=== PATIENT | male | born 1965 | race Caucasian/White ===

== ENCOUNTER 2021-01-06 13:21 | Emergency (ER) | payer OTHER ==
--- OUTSIDE RECORDS SUMMARY | 2021-01-06 13:37 | EXTERNAL MEDICAL SUMMARY RPT | Continuity of Care Document ---
:1965 Demographics Phone Unavailable Preferred Language Unknown Marital Status Unknown Yazidism Affiliation Unknown Race Unknown Ethnic Group Unknown Author Organization [facility] Address [address] [id number] Phone Social History date description facility [phone]
[2021-01-06] MEDS ORDERED: HYDROmorphone 1 MG/ML CARPUJECT IVP STA ×2 (14:51→16:30)
--- NOTE | 2021-01-06 14:54 | ED Physician Documentation ---
History of Present Illness - Stated complaint Stated Complaint: SINUS PRESSURE/HEAD PX - Chief complaint Chief Complaint: General - History obtained from History obtained from: Patient - Additonal information Additional information: This is a relatively healthy 55-year-old smoker who was had a couple of days of sinus drainage, mostly clear. He denies fevers. He took a nap yesterday evening, Friday evening and woke after that with his left eye swollen shut and diplopia and a severe headache. Review of Systems Ten Systems: 10 systems reviewed and negative Constitutional: denies: Fever, Chills Eyes: denies: Loss of vision Nose: reports: Rhinorrhea / runny nose PD PAST MEDICAL HISTORY - Past Medical History Past Medical History: No - Past Surgical History Past Surgical History: Yes - Present Medications Home Medications: Ambulatory Orders Medication Instructions Recorded Confirmed Fluticasone [Flonase] 2 spray .ROUTE PRN PRN 01/06/21 01/06/21 - Allergies Allergies/Adverse Reactions: Allergies Allergy/AdvReac Type Severity Reaction Status Date / Time No Known Drug Allergies Allergy Verified 01/06/21 13:25 - Social History Does the pt smoke?: Yes Smoking Status: Current every day smoker Does the pt drink ETOH?: Yes Does the pt have substance abuse?: No - Family History Family history: reports: Non contributory - Immunizations Immunizations are current?: Yes - POLST Patient has POLST: No PD ED PE NORMAL - Vitals Vital signs reviewed: Yes - General General: Alert and oriented X 3, No acute distress - HEENT HEENT: Other (The left eye is closed with very mild periorbital edema. He is unable to open the eye actively, but I am able to open the eye which demonstrates a ptotic upper lid, dilated mid minimally reactive left pupil and he has inability to look past midline to the right with the left eye.). No: PERRL, EOMI - Neck Neck: Supple, no meningeal sign, No bony TTP - Cardiac Cardiac: RRR, No murmur - Respiratory Respiratory: No respiratory distress, Clear bilaterally - Abdomen Abdomen: Normal bowel sounds, Soft, Non tender - Back Back: No CVA TTP, No spinal TTP - Derm Derm: Normal color, Warm and dry - Extremities Extremities: No edema, No calf tenderness / cord - Neuro Neuro: Alert and oriented X 3, No motor deficit, No sensory deficit, Normal speech. No: metal miner 2-12 intact Results - Vitals Vitals: Vital Signs - 24 hr 01/06/21 01/06/21 01/06/21 13:25 14:19 16:00 Temperature 36.5 C 37.5 C Heart Rate 95 80 93 Respiratory 16 14 18 Rate Blood Pressure 176/88 H 144/92 H 147/83 H O2 Saturation 98 97 100 01/06/21 18:00 Temperature 98.9 C H Heart Rate 68 Respiratory 14 Rate Blood Pressure 109/78 O2 Saturation 100 Oxygen O2 Source Room air - Labs Labs: Laboratory Tests 01/06/21 01/06/21 01/06/21 15:00 15:26 16:38 WBC 12.1 H RBC 5.27 Hgb 16.7 Hct 45.4 MCV 86.1 MCH 31.7 H MCHC 36.8 H RDW 11.7 L Plt Count 236 MPV 8.4 Neut # (Auto) 7.6 H Lymph # (Auto) 2.8 Letcher # (Auto) 1.4 H Eos # (Auto) 0.1 Baso # (Auto) 0.0 Absolute Nucleated RBC 0.00 Nucleated RBC % 0.0 Sodium 126 L Potassium 3.0 L Chloride 94 L Carbon Dioxide 20 L Anion Gap 12.0 BUN 9 Creatinine 0.9 Estimated GFR (MDRD) 87 L Glucose 118 H Calcium 8.8 Nasal Adenovirus (PCR) NOT DETECTED Nasal B. parapertussis DNA (PCR) NOT DETECTED Nasal Coronavir 229E PCR NOT DETECTED Nasal Coronavir HKU1 PCR NOT DETECTED Nasal Coronavir NL63 PCR NOT DETECTED Nasal Coronavir OC43 PCR NOT DETECTED Nasal Enterovir/Rhinovir PCR NOT DETECTED Nasal Influenza B PCR NOT DETECTED Nasal Influenza A PCR NOT DETECTED Nasal Parainfluen 1 PCR NOT DETECTED Nasal Parainfluen 2 PCR NOT DETECTED Nasal Parainfluen 3 PCR NOT DETECTED Nasal Parainfluen 4 PCR NOT DETECTED Nasal RSV (PCR) NOT DETECTED Nasal B.pertussis DNA PCR NOT DETECTED Nasal C.pneumoniae (PCR) NOT DETECTED Syed Human Metapneumo PCR NOT DETECTED Nasal M.pneumoniae (PCR) NOT DETECTED Nasal SARS-CoV-2 (PCR) NOT DETECTED - Rads (name of study) CTA HEad Radiology: EMP read contemporaneously (Pituitary mass measuring 18 mm with mass- effect on the optic chiasm. 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 He was administered divided doses of pain medication for his headache which was severe. Also dexamethasone for the mass-effect. After discussion with the patient to call was placed to [facility] for potential transfer for further evaluation and treatment. After some delays I spoke with Dr. Banda, on-call neurosurgeon at [facility] who agrees with transfer. Would like him on maintenance fluids for the hyponatremia and agrees with the previously given dexamethasone. Accepted by Dr Jiménez, [facility] ICU at 1844 Subsequently noted he has [facility] and spoke with Dr Moralez at [facility]. Departure - Departure Disposition: 02 Transfer Acute Care Hosp Clinical Impression: Diplopia, Pituitary mass Condition: Serious
[2021-01-06] MEDS ORDERED: IOPAMIDOL-300 100 ML VIAL ONE (14:56)
[2021-01-06 15:17] LABS: CALCIUM 8.8 mg/dL (8.5-10.3); CREATININE 0.9 mg/dL (0.6-1.2)
[2021-01-06 15:30] LABS: BASOPHILS % (AUTO) 0.3 %; EOSINOPHILS # (AUTO) 0.1 10^3/uL (0.0-0.7); EOSINOPHILS % (AUTO) 1.2 %; HCT - HEMATOCRIT 45.4 % (42.0-52.0); HGB - HEMOGLOBIN 16.7 g/dL (14.0-18.0); LYMPHOCYTES # (AUTO) 2.8 10^3/uL (1.5-3.5); LYMPHOCYTES % (AUTO) 23.2 %; MEAN CORPUSCULAR HEMOGLOBIN 31.7 pg (27.0-31.0); MEAN CORPUSCULAR HGB CONC 36.8 g/dL (32.0-36.0); MEAN CORPUSCULAR VOLUME 86.1 fL (80.0-94.0); MEAN PLATELET VOLUME 8.4 fL (7.4-11.4); MONOCYTES # (AUTO) 1.4 10^3/uL (0.0-1.0); MONOCYTES % (AUTO) 11.9 %; NEUTROPHILS # (AUTO) 7.6 10^3/uL (1.5-6.6); NEUTROPHILS % (AUTO) 63.2 %; PLT - PLATELET COUNT 236 10^3/uL (130-450); RED BLOOD COUNT 5.27 10^6/uL (4.70-6.10); RED CELL DISTRIBUTION WIDTH 11.7 % (12.0-15.0); WHITE BLOOD COUNT 12.1 x10^3/uL (4.8-10.8)
[2021-01-06] MEDS ORDERED: DEXAMETHASONE 10 MG/ML VIAL IVP STA (16:26)
--- NOTE | 2021-01-06 16:26 | CT Report ---
PROCEDURE: ANGIO HEAD W/WO INDICATIONS: diplopia and dilated L pupil CONTRAST: IV CONTRAST: Isovue 300 ml: 80 PO CONTRAST: *NO PO CONTRAST TECHNIQUE: Precontrast 4.5 mm thick angled axial sections acquired from the foramen magnum to the vertex. Afte r the administration of intravenous contrast, 1 mm thick sections acquired through the [place] is. Postcontrast 4.5 mm thick sections then re-acquired from the foramen magnum to the vertex. 3-di mensional mzoefab-ukgsmmrjv-rzqvlnaovc (MIP) and/or volume rendering reformats were acquired of the c entral intracranial vasculature. For radiation dose reduction, the following was used: automated ex posure control, adjustment of mA and/or kV according to patient size. COMPARISON: Correlation is made with report only from prior noncontrast head CT, 02/05/2010 FINDINGS: Image quality: Excellent. Anterior circulation: Intracranial internal carotid arteries are normal in size and flow. The flow within the paired anterior cerebral arteries is normal and symmetric. The flow within the middle cer ebral arteries is normal and symmetric. The anterior communicating artery is seen. No aneurysms are seen. Posterior circulation: Visualized portions of the vertebral arteries demonstrate normal caliber, and join to form a normal appearing basilar artery. Flow within the posterior cerebral arteries is norm al and symmetric. No aneurysms are seen. CSF spaces: Ventricles are normal in size and shape. Basal cisterns are patent. No extra-axial flu id collections. Brain: There is a pituitary mass is seen, with mass effect upon the optic chiasm, which is best demo nstrated on series 8 image 19 and on series 23 image 87. The pituitary in total measures 1.8 x 1.4 x 1.8 cm. No midline shift. No intracranial bleeds or masses. Cantu-white matter interface appears intact. Skull and face: Calvarium and facial bones appear intact, without suspicious lesions. Sinuses: Visualized sinuses and mastoids are clear. IMPRESSION: There is a pituitary mass seen, with mass effect upon the optic chiasm. The appearance is nonspecific . 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 When clinically appropriate, please consider a dedicated pituitary protocol MRI (without and with co ntrast) for further evaluation (assuming that there is no contraindication). Note: Findings and recommendations discussed by telephone with Dr. Hollis at 3:24 PM [place] time on . Reviewed by: Vamshi Combs MD on 01/06/2021 3:24 PM [facility] Approved by: Vamshi Combs MD on 01/06/2021 3:24 PM [facility] Station ID: [id number]
[2021-01-06 17:39] LABS: B. PARAPERTUSSIS- RESP PCR PAN NOT DETECTED; B. PERTUSSIS- RESP PCR PANEL NOT DETECTED; C. PNEUMONIAE- RESP PCR PANEL NOT DETECTED; CORONAVIRUS 229E-RESP PCR NOT DETECTED; CORONAVIRUS HKU1-RESP PCR NOT DETECTED; CORONAVIRUS NL63-RESP PCR NOT DETECTED; CORONAVIRUS OC43-RESP PCR NOT DETECTED; HUMAN METAPNEUMOVIRUS NOT DETECTED; INFLUENZA A- RESP PCR PANEL NOT DETECTED; INFLUENZA B - RESP PCR PANEL NOT DETECTED; M. PNEUMONIAE- RESP PCR PANEL NOT DETECTED; PARAINFLUENZA VIRUS 1 NOT DETECTED; PARAINFLUENZA VIRUS 2 NOT DETECTED; PARAINFLUENZA VIRUS 3 NOT DETECTED; PARAINFLUENZA VIRUS 4 NOT DETECTED; RHINOVIRUS/ENTEROVIRUS NOT DETECTED; RSV- RESP PCR PANEL NOT DETECTED; SARS-CoV-2 -RESP PCR PANEL NOT DETECTED
[2021-01-06] MEDS ORDERED: IOPAMIDOL-300 100 ML VIAL IVP ONE (18:30)
[2021-01-06] MEDS ORDERED: POTASSIUM CHLOR 10 MEQ/100 ML 10 MEQ/100 ML BAG IV STA (18:30)
[2021-01-06] MEDS ORDERED: SODIUM CHLORIDE 0.9% 1,000 ML IV STA (18:30)
[2021-01-06 20:49] VITALS: BP 149/93
== END 2021-01-06 21:06 | disposition short-term general hospital (02) ==
LOC: ED 13:21
DX: D35.2 Benign neoplasm of pituitary gland (principal); H53.2 Diplopia; R51.9 Headache, unspecified; Z20.822 Contact with and (suspected) exposure to COVID-19; F17.200 Nicotine dependence, unspecified, uncomplicated
CPT/HCPCS: 0202U; 36415; 70496; 80048; 85025; 96365; 96375; 96376; 99285; J1170; Q9967